=== PATIENT | female | born 1940 | race Caucasian/White ===

== ENCOUNTER 2021-01-06 16:27 | Observation (INO) ==
[2021-01-06] MEDS ORDERED: Melatonin 3 MG TABLET PO PRN (21:41)
[2021-01-06] MEDS ORDERED: Ondansetron 4 MG/2 ML VIAL IVP PRN (21:41)
[2021-01-06] MEDS ORDERED: Naloxone 0.4 MG/ML INJ IVP PRN (21:41)
[2021-01-06 22:21] LABS: Hematocrit 22.8 % (35.3-44.9); Hemoglobin 7.2 g/dL (11.5-15.4); Mean Corpuscular HGB Conc 31.6 g/dL (31.6-35.5); Mean Corpuscular Hemoglobin 29.4 pg (28.0-33.3); Mean Corpuscular Volume 93.1 fL (83.0-100.0); Mean Platelet Volume 8.9 fL (9.4-12.4); Platelet Count 274 K/mcL (140-400); Red Blood Count 2.45 M/mcL (3.82-4.97); Red Cell Distribution Width 17.4 % (11.5-14.5); White Blood Count 7.2 K/mcL (4.3-11.1)
[2021-01-07] MEDS ORDERED: Perflutren Lipid Microsphere 1.3 ML in 0.9 % Sodium Chloride 8.7 ML IVP PRN (00:04)
[2021-01-07 04:53] LABS: Hematocrit 22.5 % (35.3-44.9); Hemoglobin 6.7 g/dL (11.5-15.4); Mean Corpuscular HGB Conc 29.8 g/dL (31.6-35.5); Mean Corpuscular Hemoglobin 27.9 pg (28.0-33.3); Mean Corpuscular Volume 93.8 fL (83.0-100.0); Mean Platelet Volume 9.4 fL (9.4-12.4); Platelet Count 277 K/mcL (140-400); Red Cell Distribution Width 17.3 % (11.5-14.5); White Blood Count 6.7 K/mcL (4.3-11.1)
[2021-01-07 05:06] LABS: Alanine Aminotransferase 11 Units/L (7-52); Albumin 3.1 g/dL (3.5-5.7); Albumin/Globulin Ratio 1.6 (1.1-2.2); Alkaline Phosphatase 46 Units/L (34-104); Aspartate Amino Transferase 8 Units/L (13-39); BUN/Creatinine Ratio 17 (6-26); Bilirubin,Total 0.5 mg/dL (0.3-1.0); Blood Urea Nitrogen 14 mg/dL (8-23); Calcium 8.2 mg/dL (8.6-10.3); Carbon Dioxide 27 mEq/L (23-29); Chloride 109 mEq/L (98-107); Globulin 1.9 g/dL (2.4-3.5); Glucose 109 mg/dL (70-105); Magnesium 1.7 mg/dL (1.6-2.6); Osmolality,Calculated 295 (280-300); Phosphorous 2.7 mg/dL (2.7-4.5); Potassium 3.6 mEq/L (3.5-5.1); Sodium 142 mEq/L (136-145); Troponin I < 0.03 ng/mL (< 0.04); eGFR For African Americans > 60 (> 60); eGFR For Non-African Americans > 60 (> 60)
[2021-01-07] MEDS ORDERED: 0.9 % Sodium Chloride 250 ML IVC SCH (06:00)
[2021-01-07] MEDS: Pantoprazole 40 MG VIAL IVP SCH ×2 (09:06→17:00)
[2021-01-07] MEDS: Furosemide 40 MG/4 ML VIAL IVP SCH (09:07)
[2021-01-07 16:00] LABS: Hematocrit 30.4 % (35.3-44.9)
[2021-01-07 16:36] LABS: Hemoglobin 9.4 g/dL (11.5-15.4)
[2021-01-07] MEDS ORDERED: SODIUM CHLORIDE/NAHCO3/KCL/PEG 4,000 ML SOLN.RECON PO ONE (17:00)
[2021-01-08] MEDS: Pantoprazole 40 MG VIAL IVP SCH (05:57)
[2021-01-08 06:05] LABS: Hemoglobin 8.9 g/dL (11.5-15.4); Mean Corpuscular HGB Conc 30.7 g/dL (31.6-35.5); Mean Corpuscular Hemoglobin 27.8 pg (28.0-33.3); Mean Corpuscular Volume 90.6 fL (83.0-100.0); Red Cell Distribution Width 17.1 % (11.5-14.5); White Blood Count 7.5 K/mcL (4.3-11.1)
[2021-01-08 06:06] LABS: Mean Platelet Volume 9.3 fL (9.4-12.4); Platelet Count 313 K/mcL (140-400)
[2021-01-08 06:15] LABS: Alanine Aminotransferase 13 Units/L (7-52); Albumin 3.2 g/dL (3.5-5.7); Albumin/Globulin Ratio 1.5 (1.1-2.2); Alkaline Phosphatase 52 Units/L (34-104); Aspartate Amino Transferase 14 Units/L (13-39); BUN/Creatinine Ratio 12 (6-26); Bilirubin,Total 0.6 mg/dL (0.3-1.0); Blood Urea Nitrogen 11 mg/dL (8-23); Calcium 8.3 mg/dL (8.6-10.3); Carbon Dioxide 28 mEq/L (23-29); Chloride 104 mEq/L (98-107); Globulin 2.1 g/dL (2.4-3.5); Glucose 104 mg/dL (70-105); Osmolality,Calculated 290 (280-300); Potassium 3.4 mEq/L (3.5-5.1); Sodium 140 mEq/L (136-145); Total Protein 5.3 g/dL (6.4-8.9); eGFR For African Americans > 60 (> 60); eGFR For Non-African Americans 60 (> 60)
[2021-01-08] MEDS: Furosemide 40 MG/4 ML VIAL IVP SCH (07:52)
[2021-01-08] MEDS ORDERED: Lidocaine -MPF 2% 5 ML VIAL ONE (10:46)
[2021-01-08] MEDS ORDERED: *HR* EPINEPHrine 1 MG/10 ML SYRINGE INTRATRACH PRN (11:28)
[2021-01-08] MEDS ORDERED: Ringers Solution, Lactated 1,000 ML IVC SCH (11:30)
[2021-01-08] MEDS ORDERED: *HR* Propofol 200 MG/20 ML VIAL IVP ONE (11:32)
[2021-01-08 12:23] VITALS: O2SAT 93
[2021-01-08 15:38] VITALS: BP 145/75; PULSE 83; TEMP 97.9
== END 2021-01-08 16:41 | disposition home or self-care (01) ==
LOC: 3ANU
PROVIDERS: ADMIT Internal Medicine; ATTEND Internal Medicine
PROC: ENDOEBX (2021-01-08 12:25)